=== PATIENT | male | born 1955 | race Native Hawaiian/Other Pacific Islander ===

== ENCOUNTER 2021-06-14 01:33 | Observation (INO) | payer SELFPAY ==
--- NOTE | 2021-06-14 01:52 | Emergency Department Report ---
ED Syncope HPI - General Chief Complaint: Dizziness Stated Complaint: FAINT,LOW BP Time Seen by Provider: 06/14/21 01:48 Source: patient, RN/MD, RN notes reviewed, old records Exam Limitations: no limitations - History of Present Illness Initial Comments: Patient is a 65-year-old male that presents emergency room with a syncopal episode at 3 PM yesterday afternoon. Patient states wanted to be checked out before going to bed. Patient states he not have any symptoms at this time. Patient states prior to passing out he became dizzy and lightheaded. Patient states he passed out and then drank some water and he started feeling better. Patient states he was sitting outside in the heat under an umbrella just prior to passing out. Patient states he works outside. Patient states he finished his day of work and went home had dinner and everything and still asymptomatic b ut just wanted to be checked out. Patient states that he has never had this before. Patient states he is not vaccinated against COVID-19. Patient denies recent travel. Patient denies recent international travel. Patient denies exposure to the novel coronavirus. Patient denies sick contacts. Patient denies fever and chills. Patient denies cough. Patient denies diarrhea. Patient denies coming in contact with anybody with symptoms of the novel coronavirus. Timing/Prior Episodes: no prior history, single episode today Precipitating Factors: Positive: blurred vision, lightheadedness Context: activity Loss of Consciousness: brief (seconds) Current Symptoms: back to normal - Related Data Allergies/Adverse Reactions: Allergies No Known Allergies Allergy (Verified 06/14/21 01:46) Home Medications: Ambulatory Orders AtorvaSTATin [Lipitor] 20 mg PO QHS 01/14/20 Lisinopril [Zestril] 10 mg PO QDAY 01/14/20 metFORMIN 500 mg PO QDAY 01/14/20 Aspirin EC [Halfprin EC] 81 mg PO QDAY #30 tablet. 01/19/20 traMADoL [Ultram 50 MG tab] 50 mg PO Q6HR PRN #10 tablet 01/19/20 ED Review of Systems ROS: Stated complaint: FAINT,LOW BP Other details as noted in HPI Constitutional: denies: chills, fever Eyes: denies: eye pain, eye discharge, vision change ENT: denies: ear pain, throat pain Respiratory: denies: cough, shortness of breath, wheezing Cardiovascular: denies: chest pain, palpitations Endocrine: no symptoms reported Gastrointestinal: denies: abdominal pain, nausea, diarrhea Genitourinary: denies: urgency, dysuria Musculoskeletal: denies: back pain, joint swelling, arthralgia Skin: denies: rash, lesions Neurological: as per HPI. denies: headache, weakness, paresthesias Psychiatric: denies: anxiety, depression Hematological/Lymphatic: denies: easy bleeding, easy bruising ED Past Medical Hx - Past Medical History Previous Medical History?: Yes Hx Hypertension: Yes Hx Heart Attack/AMI: No Hx Congestive Heart Failure: Yes (Diastolic) Hx Diabetes: Yes Additional medical history: Dyslipidemia - Surgical History Past Surgical History?: Yes Hx Pacemaker: Yes (transvenous paced) - Family History Family history: no significant - Social History Smoking Status: Never Smoker Substance Use Type: None - Medications Home Medications: Home Medications Medication Instructions Recorded Confirmed Last Taken Type AtorvaSTATin [Lipitor] 20 mg PO QHS 01/14/20 01/14/20 01/13/20 History Lisinopril [Zestril] 10 mg PO QDAY 01/14/20 01/14/20 01/14/20 History metFORMIN 500 mg PO QDAY 01/14/20 01/14/20 01/14/20 History Aspirin EC [Halfprin EC] 81 mg PO QDAY #30 tablet.dr 01/19/20 Unknown Rx traMADoL [Ultram 50 MG tab] 50 mg PO Q6HR PRN #10 tablet 01/19/20 Unknown Rx ED Physical Exam - General Limitations: No Limitations General appearance: alert, in no apparent distress - Head Head exam: Present: atraumatic, normocephalic - Eye Eye exam: Present: normal appearance, PERRL Pupils: Present: normal accommodation - ENT ENT exam: Present: mucous membranes moist - Neck Neck exam: Present: normal inspection - Respiratory Respiratory exam: Present: normal lung sounds bilaterally. Absent: respiratory distress - Cardiovascular Cardiovascular Exam: Present: regular rate, normal rhythm. Absent: systolic murmur, diastolic murmur, rubs, gallop - GI/Abdominal GI/Abdominal exam: Present: soft, normal bowel sounds - Rectal Rectal exam: Present: deferred - Extremities Exam Extremities exam: Present: normal inspection - Back Exam Back exam: Present: normal inspection - Neurological Exam Neurological exam: Present: alert, oriented X3, CN II-XII intact, normal gait. Absent: abnormal gait, motor sensory deficit - Psychiatric Psychiatric exam: Present: normal affect, normal mood - Skin Skin exam: Present: warm, dry, intact, normal color. Absent: rash ED Course Vital Signs 06/14/21 02:25 Pulse Rate 81 Respiratory 16 Rate Blood Pressure 107/54 [Left] O2 Sat by Pulse 94 Oximetry - Reevaluation(s) Reevaluation #1: I discussed all results with patient. I discussed plan of care with patient. Patient agrees with plan of care and admission. Patient to be admitted to the hospitalist service. 06/14/21 03:31 - Consultations Consultation #1: Hospitalist consulted for admission. Hospitalist to admit patient. 06/14/21 03:31 ED Medical Decision Making - Lab Data Result diagrams: 06/14/21 01:58 06/14/21 01:58 - EKG Data -: EKG Interpreted by [facility] EKG shows normal: sinus rhythm, axis, intervals, ST-T waves Rate: normal - EKG Data Interpretation: other (Pacer, wide QRS,) - Radiology Data Radiology results: report reviewed, image reviewed CHEST 1 VIEW INDICATION / CLINICAL INFORMATION: Lightheadedness/Dizziness STUDY TIME: 214 COMPARISON: 01/18/2020 FINDINGS: SUPPORT DEVICES: Pacer is again noted HEART / MEDIASTINUM: Mild cardiomegaly LUNGS / PLEURA: Pulmonary vascularity is not significantly increased from this supine view. No focal infiltrates are seen. No pleural effusions are noted. No pneumothorax. ADDITIONAL FINDINGS: No significant additional findings. - Medical Decision Making Patient is a 65-year-old male who presents emergency room with complaints of syncopal episode. Patient syncopal episode happened approximately 2 hours prior to arrival to the ER. Patient wanted to be checked out. Patient states he was sitting outside and he and passed out. Patient had labs done. Patient's labs are significant for dehydration, acute renal insufficiency, elevated creatinine, elevated CK, elevated WBC. Patient has history of diastolic CHF. Patient will be given fluids sparingly. Patient had a chest x-ray which shows no acute findings. Personally reviewed the chest x-ray. Patient's EKG shows paced rhythm. I personally viewed EKG. Patient has a relatively low blood pressure. Patient will be admitted to the hospital service for further evaluation treatment. Critical care time documented due to the multiple reassessments, prolonged time at the bedside, interpretation of diagnostics and labs. - Differential Diagnosis Syncope, dehydration, rhabdo, cardiac event Critical care attestation.: If time is entered above; I have spent that time in minutes in the direct care of this critically ill patient, excluding procedure time. ED Disposition Clinical Impression: Dehydration, Cardiac pacemaker in situ, Elevated CK Syncope Qualifiers: Syncope type: unspecified Qualified Code(s): R55 - Syncope and collapse Acute renal failure Qualifiers: Acute renal failure type: unspecified Qualified Code(s): N17.9 - Acute kidney failure, unspecified Hypotension Qualifiers: Hypotension type: unspecified hypotension type Qualified Code(s): I95.9 - Hypotension, unspecified Disposition: 09 ADMITTED INPATIENT Is pt being admited?: Yes Does the pt Need Aspirin: No Condition: Critical Instructions: Syncope (ED) Time of Disposition: 03:34
[2021-06-14 02:13] LABS: Basophils # (Auto) 0.1 K/mm3 (0.0-0.1); Basophils % (Auto) 0.6 % (0.0-1.8); Eosinophils # (Auto) 0.6 K/mm3 (0.0-0.4); Eosinophils % (Auto) 4.7 % (0.0-4.3); Hematocrit 45.9 % (35.5-45.6); Hemoglobin 15.7 gm/dl (11.8-15.2); Lymphocytes # (Auto) 3.3 K/mm3 (1.2-5.4); Lymphocytes % (Auto) 27.2 % (13.4-35.0); Mean Corpuscular HGB Conc 34 % (32-34); Mean Corpuscular Volume 94 fl (84-94); Monocytes # (Auto) 1.5 K/mm3 (0.0-0.8); Monocytes % (Auto) 12.2 % (0.0-7.3); Platelet Count 201 K/mm3 (140-440); Red Blood Count 4.89 M/mm3 (3.65-5.03); Red Cell Distribution Width 13.7 % (13.2-15.2)
[2021-06-14 02:34] LABS: Alanine Aminotransferase 39 units/L (7-56); Albumin 4.7 g/dL (3.9-5); BUN/Creatinine Ratio 27; Blood Urea Nitrogen 43 mg/dL (9-20); Hemolysis Index 6
--- NOTE | 2021-06-14 03:05 | XRay Report ---
CHEST 1 VIEW INDICATION / CLINICAL INFORMATION: Lightheadedness/Dizziness STUDY TIME: 214 COMPARISON: 01/18/2020 FINDINGS: SUPPORT DEVICES: Pacer is again noted HEART / MEDIASTINUM: Mild cardiomegaly LUNGS / PLEURA: Pulmonary vascularity is not significantly increased from this supine view. No focal infiltrates are seen. No pleural effusions are noted. No pneumothorax. ADDITIONAL FINDINGS: No significant additional findings. Signer Name: Sabas Worthy MD Signed: 06/14/2021 3:01 AM Workstation Name: [id number]
[2021-06-14] MEDS ORDERED: SODIUM CHLORIDE 0.9% 500 ML 500 ML IV ONE (03:28)
[2021-06-14] MEDS ORDERED: MAGNESIUM HYDROXIDE (MOM) ORAL LIQD UDC PO PRN (03:57)
[2021-06-14] MEDS ORDERED: MORPHINE 2 MG/1 ML INJ IV PRN (03:57)
[2021-06-14] MEDS ORDERED: ONDANSETRON 4 MG/2 ML INJ IV PRN (03:57)
[2021-06-14] MEDS ORDERED: MORPHINE 4 MG/1 ML INJ IV PRN (03:57)
[2021-06-14] MEDS ORDERED: ACETAMINOPHEN 325 MG TAB PO PRN (03:57)
[2021-06-14] MEDS ORDERED: DEXTROSE 50% IN WATER (25GM) 50 ML SYRINGE IV PRN (03:57)
--- NOTE | 2021-06-14 04:10 | History and Physical Report ---
History of Present Illness Date of examination: 06/14/21 Date of admission: 06/14/2021 Chief complaint: Syncope History of present illness: 65-year-old male with history of diabetes mellitus, dyslipidemia, CHF and hypertension presents to the emergency room today complaining of having a syncopal episode sometime this afternoon. Became dizzy and lightheaded prior to the syncopal episode. He has been sitting out in the sun earlier in the day when this episode occu rred. He however drank some water and felt a little better. Patient denies any fever or chills, no chest pain or shortness of breath, no nausea vomiting and no abdominal pain. He denies any headache and denies any diaphoresis. Patient denies any sick contacts and no recent travel. Denies any contact with anyone with COVID-19. Upon arrival in the emergency room, blood pressure was slightly low with systolic in the low 100s and diastolic in the 50s. Patient was placed on IV fluid with significant improvement in blood pressure. Work-up in the emergency room today, significant findings were that of BUN and creatinine of 43 and 1.6 respectively. Creatinine kinase was 846. Chest x-ray unremarkable. Past History Past Medical History: diabetes, heart failure, hypertension, hyperlipidemia Past Surgical History: Other (Pacemaker) Social history: no significant social history Family history: no significant family history Medications and Allergies Allergies Allergy/AdvReac Type Severity Reaction Status Date / Time No Known Allergies Allergy Verified 06/14/21 01:46 Home Medications Medication Instructions Recorded Confirmed Last Taken Type AtorvaSTATin [Lipitor] 20 mg PO QHS 01/14/20 06/14/21 01/13/20 History Lisinopril [Zestril] 10 mg PO QDAY 01/14/20 06/14/21 01/14/20 History metFORMIN 500 mg PO QDAY 01/14/20 06/14/21 01/14/20 History Aspirin EC [Halfprin EC] 81 mg PO QDAY #30 tablet. 01/19/20 06/14/21 Unknown Rx Active Meds: Active Medications Acetaminophen (Acetaminophen 325 Mg Tab) 650 mg PO Q4H PRN PRN Reason: Pain MILD(1-3)/Fever >100.5/HAYES Dextrose (Dextrose 50% In Water (25gm) 50 Ml Syringe) 50 ml IV Q30MIN PRN; Protocol PRN Reason: Hypoglycemia Sodium Chloride (Nacl 0.9% 1000 Ml) 1,000 mls @ 150 mls/hr IV DIRECT KESHA Insulin Human Regular (Insulin Regular, Human 100 Units/1 Ml) 0 units SUB-Q ACHS KESHA; Protocol Magnesium Hydroxide (Magnesium Hydroxide (Mom) Oral Liqd Udc) 30 ml PO Q4H PRN PRN Reason: Constipation Morphine Sulfate (Morphine 2 Mg/1 Ml Inj) 2 mg IV Q4H PRN PRN Reason: Pain, Moderate (4-6) Morphine Sulfate (Morphine 4 Mg/1 Ml Inj) 4 mg IV Q4H PRN PRN Reason: Pain , Severe (7-10) Ondansetron HCl (Ondansetron 4 Mg/2 Ml Inj) 4 mg IV Q8H PRN PRN Reason: Nausea And Vomiting Sodium Chloride (Sodium Chloride 0.9% 10 Ml Flush Syringe) 10 ml IV BID KESHA Sodium Chloride (Sodium Chloride 0.9% 10 Ml Flush Syringe) 10 ml IV PRN PRN PRN Reason: LINE FLUSH Review of Systems Constitutional: no fever, no chills Ears, nose, mouth and throat: no nasal congestion, no sore throat Cardiovascular: no chest pain, no palpitations Respiratory: no cough, no shortness of breath Gastrointestinal: no abdominal pain, no nausea, no vomiting, no diarrhea Genitourinary Male: no dysuria, no hematuria, no nocturia Musculoskeletal: no neck pain, no low back pain Integumentary: no rash, no pruritis Neurological: other (Syncope), no headaches, no confusion Psychiatric: no anxiety, no depression Endocrine: no polyphagia, no polydipsia, no polyuria, no nocturia Exam - Constitutional Vitals: Temp Pulse Resp BP Pulse Ox 73 17 111/53 94 06/14/21 03:30 06/14/21 03:30 06/14/21 03:30 06/14/21 03:30 General appearance: Present: no acute distress, well-nourished - EENT Eyes: Present: PERRL, EOM intact. Absent: scleral icterus ENT: hearing intact, clear oral mucosa, dentition normal - Neck Neck: Present: supple, normal ROM - Respiratory Respiratory effort: normal Respiratory: bilateral: CTA - Cardiovascular Rhythm: regular Heart Sounds: Present: S1 & S2. Absent: gallop, systolic murmur, diastolic murmur, rub, click - Extremities Extremities: no ischemia, pulses intact, pulses symmetrical, No edema, normal temperature, normal color, Full ROM Peripheral Pulses: within normal limits - Abdominal General gastrointestinal: Present: soft, non-tender, non-distended, normal bowel sounds. Absent: mass - Integumentary Integumentary: Present: clear, warm, dry, normal turgor. Absent: rash - Musculoskeletal Musculoskeletal: strength equal bilaterally - Psychiatric Psychiatric: appropriate mood/affect, intact judgment & insight, memory intact, cooperative - Neurologic Neurologic: CNII-XII intact, no focal deficits, moves all extremities HEART Score - HEART Score Troponin: Troponin T < 0.010 ng/mL (0.00-0.029) 06/14/21 01:58 Results - Labs CBC & Chem 7: 06/14/21 01:58 06/14/21 01:58 Labs: Abnormal lab results 06/14/21 06/14/21 Range/Units 01:58 01:58 WBC 12.1 H (4.5-11.0) K/mm3 Hgb 15.7 H (11.8-15.2) gm/dl Hct 45.9 H (35.5-45.6) % [place] % (Auto) 12.2 H (0.0-7.3) % Eos % (Auto) 4.7 H (0.0-4.3) % [place] # (Auto) 1.5 H (0.0-0.8) K/mm3 Eos # (Auto) 0.6 H (0.0-0.4) K/mm3 Sodium 136 L (137-145) mmol/L Chloride 95.8 L (98-107) mmol/L BUN 43 H (9-20) mg/dL Creatinine 1.6 H (0.8-1.3) mg/dL Glucose 118 H (75-100) mg/dL AST 47 H (5-40) units/L Total Creatine Kinase 846 H (55-170) units/L CK-MB (CK-2) 18.0 H (0.0-4.0) ng/mL Assessment and Plan - Patient Problems (1) Syncope Current Visit: Yes Status: Acute Qualifiers: Syncope type: unspecified Qualified Code(s): R55 - Syncope and collapse Plan to address problem: Etiology unclear. Possibly secondary to hypotension. However we will check carotid Doppler and echocardiogram. Patient placed on IV fluid. (2) Acute renal failure Current Visit: Yes Status: Acute Qualifiers: Acute renal failure type: unspecified Qualified Code(s): N17.9 - Acute kidney failure, unspecified Plan to address problem: Patient placed on IV fluid normal saline We will monitor BUN and creatinine. Baseline BUN and creatinine unknown. Consult placed to nephrology for evaluation. (3) Dehydration Current Visit: Yes Status: Acute Plan to address problem: We will continue on IV fluid normal saline. (4) Elevated CK Current Visit: Yes Status: Acute Plan to address problem: We will monitor CPK levels. Continue generous IV fluid hydration. (5) Diabetes Current Visit: No Status: Chronic Plan to address problem: We will monitor Accu-Cheks (6) DVT prophylaxis Current Visit: No Status: Acute Plan to address problem: Patient placed on subcutaneous heparin. (7) Full code status Current Visit: Yes Status: Acute Plan to address problem: Patient is full code.
[2021-06-14] MEDS: SODIUM CHLORIDE 0.9% 1000 ML 1,000 ML IV SCH ×2 (05:45→19:07)
[2021-06-14] MEDS: INSULIN REGULAR, HUMAN 100 UNITS/1 ML SUB-Q SCH ×4 (07:38→22:30)
[2021-06-14] MEDS ORDERED: ASPIRIN EC 81 MG TAB PO SCH (12:00)
--- NOTE | 2021-06-14 13:49 | Consultation ---
History of Present Illness - Reason for Consult Consult date: 06/14/21 acute renal failure - History of Present Illness The patient is a 65 YO male with history significant for Obesity, Diabetes mellitus, HLD, HTN and CHF who presented to [facility] ED 06/13 with complaining of having a syncopal episode on the day of presentation. He became dizzy and lightheaded prior to the syncopal episode. He has been sitting out in the sun earlier in the day when this episode occurred. He however drank some water and felt a little better. Patient denied any fever, chills, chest pain, shortness of breath, nausea vomiting, abdominal pain, headache and diaphoresis. Patient denies any sick contacts and no recent travel. Denies any contact with anyone with COVID-19. Upon arrival in the emergency room, BP was 107/54. Labs significant for BUN 43 and creatinine 1.6. Nephrology was consulted for further evaluation of MICHA. Past History Past Medical History: diabetes, heart failure, hypertension, hyperlipidemia Past Surgical History: Other (Pacemaker) Social history: no significant social history Family history: no significant family history Medications and Allergies Allergies Allergy/AdvReac Type Severity Reaction Status Date / Time No Known Allergies Allergy Verified 06/14/21 01:46 Home Medications Medication Instructions Recorded Confirmed Last Taken Type AtorvaSTATin [Lipitor] 20 mg PO QHS 01/14/20 06/14/21 01/13/20 History Lisinopril [Zestril] 10 mg PO QDAY 01/14/20 06/14/21 01/14/20 History metFORMIN 500 mg PO QDAY 01/14/20 06/14/21 01/14/20 History Aspirin EC [Halfprin EC] 81 mg PO QDAY #30 tablet. 01/19/20 06/14/21 Unknown Rx Active Meds: Active Medications Acetaminophen (Acetaminophen 325 Mg Tab) 650 mg PO Q4H PRN PRN Reason: Pain MILD(1-3)/Fever >100.5/HAYES Aspirin (Aspirin Ec 81 Mg Tab) 81 mg PO QDAY [facility] Last Admin: 06/14/21 12:33 Dose: 81 mg Documented by: Atorvastatin Calcium (Atorvastatin 20 Mg Tab) 20 mg PO QHS [facility] Dextrose (Dextrose 50% In Water (25gm) 50 Ml Syringe) 50 ml IV Q30MIN PRN; Protocol PRN Reason: Hypoglycemia Sodium Chloride (Nacl 0.9% 1000 Ml) 1,000 mls @ 150 mls/hr IV DIRECT KESHA Last Admin: 06/14/21 05:45 Dose: 150 mls/hr Documented by: Insulin Human Regular (Insulin Regular, Human 100 Units/1 Ml) 0 units SUB-Q ACHS KESHA; Protocol Last Admin: 06/14/21 12:33 Dose: Not Given Documented by: Magnesium Hydroxide (Magnesium Hydroxide (Mom) Oral Liqd Udc) 30 ml PO Q4H PRN PRN Reason: Constipation Morphine Sulfate (Morphine 2 Mg/1 Ml Inj) 2 mg IV Q4H PRN PRN Reason: Pain, Moderate (4-6) Morphine Sulfate (Morphine 4 Mg/1 Ml Inj) 4 mg IV Q4H PRN PRN Reason: Pain , Severe (7-10) Ondansetron HCl (Ondansetron 4 Mg/2 Ml Inj) 4 mg IV Q8H PRN PRN Reason: Nausea And Vomiting Sodium Chloride (Sodium Chloride 0.9% 10 Ml Flush Syringe) 10 ml IV BID [facility] Last Admin: 06/14/21 11:08 Dose: Not Given Documented by: Sodium Chloride (Sodium Chloride 0.9% 10 Ml Flush Syringe) 10 ml IV PRN PRN PRN Reason: LINE FLUSH Review of Systems All systems: negative (See HPI.) Exam - Vital Signs Vital signs: Vital Signs Pulse Resp BP Pulse Ox 81 16 107/54 94 06/14/21 02:25 06/14/21 02:25 06/14/21 02:25 06/14/21 02:25 Results - Lab Results 06/14/21 01:58 06/14/21 01:58 Most recent lab results Calcium 10.0 mg/dL (8.4-10.2) 06/14/21 01:58 Assessment and Plan 1. Acute kidney injury: Vasomotor MICHA in the setting of volume depletion and hypotension. UA bland. Renal US negative. IV fluids. Monitor renal function. Avoid nephrotoxic agents. Meds dosage based on GFR. 2. FEN: Monitor lytes and volume status. 3. Syncope: Likely secondary to vaso-vagal / hypotension. Echocardiogram. 4. Hypotension: 2/2 volume depletion. IV fluids. BP is better. 5. DM: Monitor. Subjective: Patient was seen and examined at the bedside. Examination: General appearance: well-developed, appears stated age, no distress HEENT: atraumatic Neck: trachea midline Respiratory: diminished breath sounds Heart: S1S2, regular, no murmur Abdomen: soft, obese, bowel sounds heard, NT Integumentary: no rash Neurologic: non-focal Ext: no edema
--- NOTE | 2021-06-14 13:49 | Ultrasound Report ---
ULTRASOUND RENAL INDICATION / CLINICAL INFORMATION: MICHA. COMPARISON: CT abdomen/pelvis with contrast 01/14/2020. FINDINGS: RIGHT KIDNEY: Length = 11.0 cm. - Echogenicity: Normal. - Cortical Thickness: Normal. - Hydronephrosis: None. - Cyst / Mass: Simple appearing midpole cyst measuring 1.0 x 1.2 x 1.2 cm. - Stones: None seen. LEFT KIDNEY: Length = 10.9 cm. - Echogenicity: Normal. - Cortical Thickness: Normal. - Hydronephrosis: None. - Cyst / Mass: Multiple simple appearing cysts, the largest is within the upper pole and measures 3.0 x 2.8 x 2.3 cm. - Stones: None seen. URINARY BLADDER: No significant abnormality. FREE FLUID: None. ADDITIONAL FINDINGS: None. IMPRESSION: 1. Bilateral renal cysts, as above. No acute abnormality. Scribed by: Alexa Bishop RDMS Jose Scribed: 06/14/2021 12:37 PM I have reviewed the images, agree with this report, and edited this report as needed. Signer Name: Greg Blas MD Signed: 06/14/2021 1:45 PM Workstation Name: [id number]
--- NOTE | 2021-06-14 14:41 | Event Note ---
Date: 06/14/21 Patient of Eloy June and Vahid, please refer to [facility] for further cardiac care.
--- NOTE | 2021-06-14 15:32 | Event Note ---
Date: 06/14/21 Patient seen and examined Patient denies any chest pain or short of breath Heart rate stable, breathing nonlabored Admitted for a syncopal episode Ordered CT head, carotid Doppler and 2D echocardiogram Consulted cardiology, continue to monitor in telemetry If pending work-up is normal and clinically stable possible discharge tomorrow Ordered PT consult It took me about 28 minutes to reevaluate and reasses this patient, discussed with RN/CM, review medical documents, lab results, imaging, medication list and placing order.
[2021-06-14 16:38] LABS: Creatinine,Urine 83.3 mg/dL (0.1-20.0); Protein/Creatinine Ratio,Urine 0.28
[2021-06-14 17:17] LABS: Color,Urine Yellow (Yellow)
[2021-06-14 17:18] LABS: Bilirubin,Urine 2 (Negative); Blood,Urine Negative (Negative); Protein,Urine <15 mg/dL mg/dL (Negative)
--- NOTE | 2021-06-14 17:40 | Cat Scan Report ---
CT head/brain wo con INDICATION: syncope. TECHNIQUE: Routine CT head without contrast. All CT scans at this location are performed using CT dos e reduction for ALARA by means of automated exposure control. COMPARISON: None. FINDINGS: BRAIN / INTRACRANIAL CONTENTS: No acute hemorrhage, mass effect, midline shift, or hydrocephalus. No appreciable acute large territorial or lacunar infarct. No chronic infarct or focal atrophy. Normal b rain volume and ventricular/sulcal size for age. ORBITS: No significant abnormality of visualized orbits. SINUSES / MASTOIDS: No significant abnormality of visualized sinuses and mastoid air cells. ADDITIONAL FINDINGS: None. IMPRESSION: 1. No acute intracranial abnormality. Signer Name: Greg Blas MD Signed: 06/14/2021 5:35 PM Workstation Name: [id number]
[2021-06-14 17:53] LABS: RBC,Urine < 1.0 /HPF (0.0-6.0); WBC,Urine < 1.0 /HPF (0.0-6.0)
[2021-06-14 18:13] LABS: Mucus,Urine FEW /HPF
--- NOTE | 2021-06-14 22:02 | Vascular Lab Report ---
DUPLEX DOPPLER ULTRASOUND CAROTID, BILATERAL INDICATION / CLINICAL INFORMATION: Syncope. COMPARISON: None available. FINDINGS: RIGHT CAROTID: - PLAQUE ESTIMATE (%): < 50% - CCA velocity: 102 cm/sec. - ICA peak systolic velocity: 79 cm/sec. - ICA/CCA PSV Ratio: 0.8 Right Vertebral Artery: Antegrade flow. LEFT CAROTID: - PLAQUE ESTIMATE (%): < 50% - CCA velocity: 84 cm/sec. - ICA peak systolic velocity: 78 cm/sec. - ICA/CCA PSV Ratio: 0.9 Left Vertebral Artery: Antegrade flow. IMPRESSION: 1. Right Internal Carotid Artery: Less than 50% diameter stenosis. 2. Left Internal Carotid Artery: Less than 50% diameter stenosis. Velocity criteria are extrapolated from diameter data as defined by the Society of Radiologists in Ul trasound Consensus Conference, Radiology 2003; 229;340-346. NO STENOSIS (NORMAL) - Plaque = none; ICA PSV < 125 cm/sec; ICA/CCA PSV Ratio < 2.0 <50% STENOSIS - Plaque < 50%; ICA PSV < 125 cm/sec; ICA/CCA PSV Ratio < 2.0 50-69% STENOSIS - Plaque > 50%; ICA PSV = 125-230 cm/sec; ICA/CCA PSV Ratio = 2.0-4.0 >70% BUT <100% STENOSIS - Plaque > 50%; ICA PSV > 230 cm/sec; ICA/CCA PSV Ratio > 4.0 NEAR OCCLUSION - Plaque = visible lumen; ICA PSV = high/low/none; ICA/CCA PSV Ratio = variable TOTAL OCCLUSION - Plaque = no lumen; ICA PSV = none; ICA/CCA PSV Ratio = N/A Signer Name: Jefe Marquis DO Signed: 06/14/2021 9:57 PM Workstation Name: [id number]
[2021-06-15] MEDS: SODIUM CHLORIDE 0.9% 1000 ML 1,000 ML IV SCH (05:55)
[2021-06-15 06:01] LABS: Basophils # (Auto) 0.1 K/mm3 (0.0-0.1); Basophils % (Auto) 0.8 % (0.0-1.8); Eosinophils # (Auto) 0.8 K/mm3 (0.0-0.4); Eosinophils % (Auto) 11.8 % (0.0-4.3); Hematocrit 41.1 % (35.5-45.6); Hemoglobin 14.2 gm/dl (11.8-15.2); Lymphocytes # (Auto) 2.3 K/mm3 (1.2-5.4); Lymphocytes % (Auto) 32.6 % (13.4-35.0); Mean Corpuscular HGB Conc 35 % (32-34); Mean Corpuscular Volume 95 fl (84-94); Monocytes # (Auto) 0.8 K/mm3 (0.0-0.8); Platelet Count 177 K/mm3 (140-440); Red Blood Count 4.33 M/mm3 (3.65-5.03)
[2021-06-15 06:11] LABS: INR 1.07 (0.87-1.13)
[2021-06-15 06:25] LABS: Blood Urea Nitrogen 13 mg/dL (9-20); Calcium 8.6 mg/dL (8.4-10.2); Hemolysis Index 28
[2021-06-15 06:29] LABS: BUN/Creatinine Ratio 19
[2021-06-15] MEDS: INSULIN REGULAR, HUMAN 100 UNITS/1 ML SUB-Q SCH (08:35)
--- NOTE | 2021-06-15 08:39 | Progress Note ---
Assessment and Plan 1. Acute kidney injury: Vasomotor MICHA in the setting of volume depletion and hypotension. UA bland. Renal US negative. IV fluids. Monitor renal function. Creatinine level is better. Avoid nephrotoxic agents. Meds dosage based on GFR. 2. FEN: Monitor lytes and volume status. 3. Syncope: Likely secondary to vaso-vagal / hypotension. Echocardiogram. 4. Hypotension: 2/2 volume depletion. IV fluids. BP is better. 5. DM: Monitor. Subjective: Patient was seen and examined at the bedside. Examination: General appearance: well-developed, appears stated age, no distress HEENT: atraumatic Neck: trachea midline Respiratory: diminished breath sounds Heart: S1S2, regular, no murmur Abdomen: soft, obese, bowel sounds heard, NT Integumentary: no rash Neurologic: able to move extremities Ext: no edema Subjective Date of service: 06/15/21 Objective - Vital Signs Vital signs: Vital Signs - 12hr 06/15/21 06/15/21 06/15/21 00:06 03:00 03:25 Temperature 98.6 F 98.2 F Pulse Rate 81 67 Respiratory 18 20 Rate Blood Pressure 100/67 114/67 O2 Sat by Pulse 96 99 96 Oximetry 06/15/21 04:59 Temperature Pulse Rate 67 Respiratory Rate Blood Pressure O2 Sat by Pulse Oximetry - Lab 06/15/21 04:50 06/15/21 04:50 Most recent lab results Calcium 8.6 mg/dL (8.4-10.2) 06/15/21 04:50 Urine Creatinine 83.3 mg/dL (0.1-20.0) H 06/14/21 16:03 Urine Sodium 99 mmol/L 06/14/21 16:03 Urine Total Protein 23 mg/dL (5-11.8) H 06/14/21 16:03 Medications & Allergies - Medications Allergies/Adverse Reactions: Allergies No Known Allergies Allergy (Verified 06/14/21 01:46) Home Medications: Home Medications Medication Instructions Recorded Confirmed Last Taken Type Lisinopril [Zestril] 10 mg PO QDAY 01/14/20 06/14/21 01/14/20 History metFORMIN 500 mg PO QDAY 01/14/20 06/14/21 01/14/20 History Aspirin EC [Halfprin EC] 81 mg PO QDAY #100 tablet 06/15/21 Unknown Rx AtorvaSTATin [Lipitor] 20 mg PO QHS #30 tablet 06/15/21 Unknown Rx Active Medications: Generic Name Dose Route Start Last Admin Trade Name Freq PRN Reason Stop Dose Admin Acetaminophen 650 mg 06/14/21 03:57 Acetaminophen 325 Mg Tab PO Q4H PRN Pain MILD(1-3)/Fever >100.5/HAYES Aspirin 81 mg 06/14/21 12:00 06/14/21 12:33 Aspirin Ec 81 Mg Tab PO 81 mg QDAY KESHA Administration Atorvastatin Calcium 20 mg 06/14/21 22:00 06/14/21 22:01 Atorvastatin 20 Mg Tab PO 20 mg QHS KESHA Administration Dextrose 50 ml 06/14/21 03:57 Dextrose 50% In Water (25gm) 50 Ml Syringe IV Q30MIN PRN Hypoglycemia Protocol Sodium Chloride 1,000 mls @ 150 mls/hr 06/14/21 04:00 06/15/21 05:55 Nacl 0.9% 1000 Ml IV 150 mls/hr DIRECT KESHA Administration Insulin Human Regular 0 units 06/14/21 07:30 06/15/21 08:35 Insulin Regular, Human 100 Units/1 Ml SUB-Q Not Given ACHS KESHA Protocol Magnesium Hydroxide 30 ml 06/14/21 03:57 Magnesium Hydroxide (Mom) Oral Liqd Udc PO Q4H PRN Constipation Morphine Sulfate 2 mg 06/14/21 03:57 Morphine 2 Mg/1 Ml Inj IV Q4H PRN Pain, Moderate (4-6) Morphine Sulfate 4 mg 06/14/21 03:57 Morphine 4 Mg/1 Ml Inj IV Q4H PRN Pain , Severe (7-10) Ondansetron HCl 4 mg 06/14/21 03:57 Ondansetron 4 Mg/2 Ml Inj IV Q8H PRN Nausea And Vomiting Sodium Chloride 10 ml 06/14/21 10:00 06/14/21 22:30 Sodium Chloride 0.9% 10 Ml Flush Syringe IV 10 ml BID KESHA Administration Sodium Chloride 10 ml 06/14/21 03:57 Sodium Chloride 0.9% 10 Ml Flush Syringe IV PRN PRN LINE FLUSH
[2021-06-15 12:50] VITALS: BP 114/76
--- NOTE | 2021-06-18 13:39 | Discharge Summary ---
Providers - Providers Date of Admission: 06/14/21 03:58 Date of discharge: 06/15/21 Attending physician: TIANA MCKINLEY 06/14/21 03:57 Consult to Physician [CONS] Routine Comment: Consulting Provider: BEN CARVER Physician Instructions: Reason For Exam: MICHA 06/14/21 03:58 Consult to Dietitian/Nutrition [CONS] Routine Physician Instructions: Reason For Exam: Reason for Consult: Diet education 06/14/21 10:58 Physical Therapy Evaluation and Treat [CONS] Routine Comment: Reason For Exam: Debility 06/14/21 15:11 Consult to Physician [CONS] Routine Comment: Consulting Provider: RAFFAELE LUU Physician Instructions: Reason For Exam: syncope Primary care physician: FORENSIC LOCKSMITH Hospitalization Condition: Critical Hospital course: 65-year-old male with history of diabetes mellitus, dyslipidemia, CHF and hypertension presents to the emergency room today complaining of having a syncopal episode sometime this afternoon. Became dizzy and lightheaded prior to the syncopal episode. He has been sitting out in the sun earlier in the day when this episode occurred. He however drank some water and felt a little better. Patient denies any fever or chills, no chest pain or shortness of breath, no nausea vomiting and no abdominal pain. He denies any headache and denies any diaphoresis. Patient denies any sick contacts and no recent travel. Denies any contact with anyone with COVID-19. Upon arrival in the emergency room, blood pressure was slightly low with systolic in the low 100s and diastolic in the 50s. Patient was placed on IV fluid with significant improvement in blood pressure. Work-up in the emergency room today, significant findings were that of BUN and creatinine of 43 and 1.6 respectively. Creatinine kinase was 846. Chest x-ray unremarkable. Assessment and Plan - Patient Problems (1) Syncope Current Visit: Yes Status: Acute Qualifiers: Syncope type: unspecified Qualified Code(s): R55 - Syncope and collapse Plan to address problem: Vasovagal/orthostatic hypotension (2) MICHA Current Visit: Yes Status: Acute Qualifiers: Acute renal failure type: unspecified Qualified Code(s): N17.9 - Acute kidney failure, unspecified Plan to address problem: Secondary to vasomotor nephropathy and dehydration Creatinine is normal now Improved creatinine improved from 1.6-0.7 (3) Dehydration Current Visit: Yes Status: Acute Plan to address problem: IV fluids given (4) Elevated CK Current Visit: Yes Status: Acute Plan to address problem: Elevated CK levels with mild rhabdo Increase fluid intake (5) Diabetes Current Visit: No Status: Chronic Plan to address problem: Patient to continue his home medications Disposition: HOME / SELF CARE / HOMELESS Final Discharge Diagnosis (Prints w/discharge instructions): Syncope. MICHA. Dehydration. T2DM. Orthostatic hypotension Time spent for discharge: 32 minutes - Discharge Diagnoses (1) MICHA (acute kidney injury) Status: Acute (2) T2DM (type 2 diabetes mellitus) Status: Acute (3) Dehydration Status: Acute (4) Syncope Status: Acute Qualifiers: Syncope type: unspecified Qualified Code(s): R55 - Syncope and collapse (5) HTN (hypertension) Status: Chronic Qualifiers: Hypertension type: essential hypertension Qualified Code(s): I10 - Essential (primary) hypertension Core Measure Documentation - Palliative Care Palliative Care/ Comfort Measures: Not Applicable - Core Measures Any of the following diagnoses?: none Exam - Constitutional Vitals: Temp Pulse Resp BP Pulse Ox 98.2 F 67 22 114/76 96 06/15/21 03:25 06/15/21 04:59 06/15/21 07:43 06/15/21 07:43 06/15/21 03:25 General appearance: Present: no acute distress, well-nourished - EENT Eyes: Present: PERRL ENT: hearing intact, clear oral mucosa - Neck Neck: Present: supple, normal ROM - Respiratory Respiratory effort: normal Respiratory: bilateral: CTA - Cardiovascular Heart rate: 78 Rhythm: regular Heart Sounds: Present: S1 & S2. Absent: rub, click - Extremities Extremities: no ischemia, pulses intact, pulses symmetrical, No edema Peripheral Pulses: within normal limits - Abdominal General gastrointestinal: Present: soft, non-tender, non-distended, normal bowel sounds Male genitourinary: Present: normal - Rectal Rectal Exam: deferred - Integumentary Integumentary: Present: clear, warm, dry - Musculoskeletal Musculoskeletal: gait normal, strength equal bilaterally - Psychiatric Psychiatric: appropriate mood/affect, intact judgment & insight - Neurologic Neurologic: CNII-XII intact, moves all extremities - Allied Health Allied health notes reviewed: nursing, case management Plan Activity: no restrictions Diet: low fat, low salt Follow up with: PRIMARY CARE, [Primary Care Provider] - 3-5 Days Prescriptions: Aspirin EC [Halfprin EC] 81 mg PO QDAY #100 tablet AtorvaSTATin [Lipitor] 20 mg PO QHS #30 tablet
--- NOTE | 2021-06-18 14:27 | Electrocardiograph Report ---
[facility] Test Date: 2021-06-14 Test Time: 01:42:38 Pat Name: HEATHER BUCHANAN Department: Room: A465 Gender: M E Commerce Director: BAYLEE : 1955 Requested By: MELISSA RASMUSSEN III Order Number: [id number] Reading MD: Maria Alejandra Tracy Measurements Intervals [place] Rate: 78 P: 54 CA: 202 QRS: 257 QRSD: 174 T: 58 QT: 426 QTc: 487 Interpretive Statements Sinus rhythm with frequent PACs Left bundle branch block Cannot exclude the presence of a ventricular pacemaker No previous ECG available for comparison Electronically Signed On 06-18-2021 14:26:45 EDT by Maria Alejandra Tracy
== END 2021-06-15 11:10 | disposition home or self-care (01) ==
LOC: ED 01:33 → 4A 03:58
PROVIDERS: ADMIT Internal Medicine Geriatric Medicine; ATTEND Internal Medicine
DX: N17.9 Acute kidney failure, unspecified (principal); R55 Syncope and collapse; I11.0 Hypertensive heart disease with heart failure; I50.9 Heart failure, unspecified; I95.9 Hypotension, unspecified; E86.0 Dehydration; R74.8 Abnormal levels of other serum enzymes; E11.9 Type 2 diabetes mellitus without complications; E78.5 Hyperlipidemia, unspecified; Z95.0 Presence of cardiac pacemaker; Z79.82 Long term (current) use of aspirin; Z79.4 Long term (current) use of insulin
CPT/HCPCS: 36415; 70450; 71045; 76770; 80048; 80053; 81001; 82550; 82553; 82570; 82962; 84156; 84300; 84484; 85025; 85610; 93005; 93306; 93880; 96360; 96361; 96372; 99291; A9270; G0378; J7030; J7040; J1815